=== PATIENT | female | born 1960 | race Caucasian/White ===

== ENCOUNTER 2020-03-05 07:20 | Emergency (ER) | payer OTHER ==
[~2020-03-05] VITALS: Ht 165.1 cm; Wt 65.1 kg
[2020-03-05] MEDS ORDERED: ACETAMINOPHEN 500 MG TABLET ONE (07:53)
[2020-03-05] MEDS ORDERED: ACETAMINOPHEN 500 MG TABLET PO ONE (08:00)
[2020-03-05] MEDS ORDERED: SODIUM CHLORIDE 0.9% 1,000ML IVBOLUS ONE (08:00)
[2020-03-05] MEDS ORDERED: PLEASE ENTER ALLERGIES MC SCH (08:00)
[2020-03-05 08:15] LABS: ALANINE AMINOTRANSFERASE 120 U/L (12-78); ALBUMIN 3.2 g/dL (3.4-5.0); ANION GAP 8 mmol/L (5-15); BASOPHILS # (AUTO) 0.02 x10^3/uL (0-0.1); BASOPHILS % (AUTO) 0 % (0-1); CALCIUM 8.5 mg/dL (8.5-10.1); CHLORIDE 105 mmol/L (98-107); CREATININE 0.78 mg/dL (0.55-1.02); EOSINOPHILS % (AUTO) 0 % (1-7); LYMPHOCYTES # (AUTO) 1.23 x10^3/uL (1-3.4); LYMPHOCYTES % (AUTO) 24 % (22-44); MD NO; MEAN CORPUSCULAR HEMOGLOBIN 29.5 pg (27.0-34.8); MEAN CORPUSCULAR HGB CONC 33.2 g/dL (32.4-35.8); MEAN CORPUSCULAR VOLUME 88.8 fL (80-100); MEAN PLATELET VOLUME 7.9 fL (7.4-10.4); MONOCYTES # (AUTO) 0.21 x10^3/uL (0.2-0.8); MONOCYTES % (AUTO) 4 % (2-9); NEUTROPHILS # (AUTO) 3.65 x10^3/uL (1.8-6.8); NEUTROPHILS % (AUTO) 71 % (42-75); PLATELET COUNT 176 x10^3/uL (130-400); RED BLOOD COUNT 5.11 x10^6/uL (3.82-5.3); RED CELL DISTRIBUTION WIDTH 14.1 % (9.6-15.2)
[2020-03-05 08:17] LABS: ALKALINE PHOSPHATASE 121 U/L (45-117); BILIRUBIN,TOTAL 0.5 mg/dL (0.2-1.0); TOTAL PROTEIN 7.7 g/dL (6.4-8.2)
--- NOTE | 2020-03-05 08:28 | NUR ---
DR AUGUSTIN AT BEDSIDE EXAMINING PT
--- NOTE | 2020-03-05 09:17 | NUR ---
RESTING WITH EYES CLOSED
[2020-03-05 09:18] VITALS: BP 113/74
== END 2020-03-05 10:26 | disposition home or self-care (01) ==
LOC: ED 10:10
DX: U07.1 COVID-19 (principal); J18.0 Bronchopneumonia, unspecified organism; J06.9 Acute upper respiratory infection, unspecified; R74.0 Nonspecific elevation of levels of transaminase and lactic acid dehydrogenase [LDH]; R06.02 Shortness of breath; R00.0 Tachycardia, unspecified; M79.10 Myalgia, unspecified site; R09.81 Nasal congestion; R10.9 Unspecified abdominal pain; E86.0 Dehydration
CPT/HCPCS: 36415; 71045; 80053; 83690; 85025; 93005; 96360; 99285; J7030